=== PATIENT | male | born 1990 | race African-American/Black ===

== ENCOUNTER 2019-01-28 18:47 | Emergency (ER) | payer OTHER, SELFPAY ==
--- NOTE | 2019-01-28 19:33 | ER ---
Nurse's Notes [facility] Name: Jasbir Alberto Age: 28 yrs Sex: Male : 1990 Arrival Date: 01/28/2019 Time: 18:51 Bed 19 Private MD: None, None Diagnosis: Presentation: 01/28 19:04 Presenting complaint: Patient states: I went to [place] about 30 minutes ago. They did an ed1 EKG and said I wasn't having a heart attack and that it would be over $400 to be seen by a doctor so I came here. I have been having chest pain on and off since Monday and heart problems run in my family so I wanted to get checked out. Transition of care: patient was not received from another setting of care. Onset of symptoms was January 26, 2019. Risk Assessment: Do you want to hurt yourself or someone else? Patient reports no desire to harm self or others. Initial Sepsis Screen: Does the patient meet any 2 criteria? No. Patient's initial sepsis screen is negative. Does the patient have a suspected source of infection? No. Patient's initial sepsis screen is negative. Care prior to arrival: EKG done at [place]. 19:04 Method Of Arrival: Ambulatory ed1 19:04 Acuity: SAFIA 3 ed1 Triage Assessment: 19:08 General: Appears in no apparent distress. Behavior is calm, cooperative, Pt eating and ed1 drinking during triage. Pain: Complains of pain in chest Pain does not radiate. Pain currently is 2 out of 10 on a pain scale. at worst was 8 out of 10 on a pain scale. Quality of pain is described as sharp, Pain began 2-3 days ago. Is episodic, lasting a few minutes. EENT: No signs and/or symptoms were reported regarding the EENT system. Neuro: Level of Consciousness is awake, alert, obeys commands, Oriented to person, place, time, situation. Cardiovascular: Reports chest pain, Denies diaphoresis, fatigue, lightheadedness, nausea, palpitations, shortness of breath, syncope, vomiting, Heart tones S1 S2 present Capillary refill < 3 seconds in bilateral fingers Rhythm is regular Chest pain is described as mild, quality is sharp, is located in substernal area began Monday episodes are intermittent last 2-3 minutes. Respiratory: Airway is patent Respiratory effort is even, unlabored, Respiratory pattern is regular, symmetrical, Breath sounds are clear bilaterally. Denies cough, shortness of breath. GI: Abdomen is non-distended, Bowel sounds present X 4 quads. Abd is soft and non tender X 4 quads. Patient currently denies diarrhea, nausea, vomiting. : No signs and/or symptoms were reported regarding the genitourinary system. Derm: Skin is intact, is healthy with good turgor, Skin is dry, Skin is normal, Skin temperature is warm. Musculoskeletal: Circulation, motion, and sensation intact. Range of motion: intact in all extremities. Historical: - Allergies: 19:08 Peanut; ed1 19:08 Dairy; ed1 19:08 Chocolate; ed1 - Home Meds: 19:08 None [Active]; ed1 - PMHx: 19:08 None; ed1 - PSHx: 19:08 [place] teeth; ed1 - Immunization history:: Adult Immunizations up to date, Flu vaccine is not up to date. Patient has never been vaccinated. - Social history:: Smoking status: Patient uses tobacco products, smokes one-half pack cigarettes per day. - Ebola Screening: : Patient negative for fever greater than or equal to 101.5 degrees Fahrenheit, and additional compatible Ebola Virus Disease symptoms Patient denies exposure to infectious person Patient denies travel to an Ebola-affected area in the 21 days before illness onset No symptoms or risks identified at this time. Screenin:11 Abuse screen: Denies threats or abuse. Denies injuries from another. Nutritional ed1 screening: No deficits noted. Tuberculosis screening: No symptoms or risk factors identified. Fall Risk None identified. Assessment: 19:11 General: See triage assessment. Pain: Complains of pain in chest Pain does not radiate. ed1 Pain currently is 2 out of 10 on a pain scale. at worst was 8 out of 10 on a pain scale. Quality of pain is described as sharp, Pain began 2-3 days ago. 19:28 Reassessment: Pt ambulated to nurses station and stated "I live in [place] and my ride ed1 is here. If I don't leave now I won't have a ride home.". Vital Signs: 19:08 BP 140 / 93; Pulse 103; Resp 16; Temp 98.7(O); Pulse Ox 100% on R/A; Weight 89.36 kg ed1 (R); Height 5 ft. 6 in. (167.64 cm) (R); Pain 2/10; 19:08 Body Mass Index 31.80 (89.36 kg, 167.64 cm) ed1 ED Course: 18:51 Patient arrived in ED. mr 18:51 None, None is Private Physician. mr 18:58 Emily Machado, RN is Primary Nurse. ed1 19:07 Triage completed. ed1 19:08 Arm band placed on. ed1 19:11 Awaiting ED provider evaluation. ed1 19:11 Patient has correct armband on for positive identification. Bed in low position. Call ed1 light in reach. Side rails up X 1. Pulse ox on. NIBP on. 19:11 Patient maintains SpO2 saturation greater than 95% on room air. ed1 19:19 Emile Tanner MD is Attending Physician. maria 19:30 No provider procedures requiring assistance completed. Patient did not have IV access ed1 during this emergency room visit. Administered Medications: No medications were administered Outcome: 19:30 Eloped from waiting room, before seeing physician Pt left due to not having ed1 transportation. 19:30 Condition: stable 19:30 Discharge instructions given to patient, Instructed on I informed the patient that if his condition worsened he needs to return to the ER for evaluation. Demonstrated understanding of instructions. 19:32 Patient left the ED. ed1 Signatures: Emile Tanner MD MD cha Rivera, Mary mr Emily Machado, RN RN ed1
== END 2019-01-28 19:32 | disposition left against medical advice (07) ==
LOC: ER 18:47
DX: R07.9 Chest pain, unspecified (principal); Z91.011 Allergy to milk products; Z91.010 Allergy to peanuts; Z91.018 Allergy to other foods; Z53.21 Procedure and treatment not carried out due to patient leaving prior to being seen by health care provider
CPT/HCPCS: 99284

== ENCOUNTER 2023-07-27 15:55 | Emergency (ER) | payer BC ==
[2023-07-27 16:32] LABS: Absolute Lymphocytes (CBC) 3.6 K/uL (0.7-4.9); Hematocrit 45.9 % (39.6-49.0); MCV 86.8 fL (80-100); Platelets 221 thou/uL (152-406); RBC Red Blood Cell Count 5.29 M/uL (4.33-5.43)
[2023-07-27 16:47] LABS: Albumin 3.9 g/dL (3.4-5.0); Bilirubin Total 0.3 mg/dL (0.2-1.0); Potassium 3.9 mEq/L (3.5-5.1); Protein, Total 7.3 g/dL (6.4-8.2)
--- NOTE | 2023-07-27 17:09 | EDPHYS ---
Physician Documentation [facility] Name: Jasbir Alberto Age: 32 yrs Sex: Male : 1990 Arrival Date: 07/27/2023 Time: 15:55 Bed 17 Private MD: ED Physician Keven Hu HPI: 07/27 16:26 This 32 yrs old Black Male presents to ER via Ambulatory with complaints of Arm Problem.ms3 16:26 32-year-old male with no past medical history presents for left arm twitching that ms3 began on awakening this morning. Patient states symptoms became worse after he awoke from a nap that started at 10:30 AM. Patient denies headache, nausea, vomiting, numbness, weakness. Patient denies pain. Historical: - Allergies: 16:03 Chocolate; ap3 16:03 Dairy; ap3 16:03 Peanut; ap3 - Home Meds: 16:03 None [Active]; ap3 - PMHx: 16:03 None; ap3 - Immunization history:: Adult Immunizations unknown. - Social history:: Smoking status: Patient reports the use of cigarette tobacco products, smokes one-half pack cigarettes per day. ROS: 17:09 Constitutional: Negative for fever, and chills. Neck: Negative for injury, pain, and ms3 swelling, Cardiovascular: Negative for chest pain, and palpitations. Respiratory: Negative for shortness of breath, cough, wheezing, and pleuritic chest pain, Abdomen/GI: Negative for abdominal pain, nausea, vomiting, diarrhea, and constipation, MS/Extremity: Negative for injury and deformity, Skin: Negative for injury, rash, and discoloration. 17:09 Neuro: Positive for Left arm twitching. 17:09 All other systems are negative. Exam: 17:09 Constitutional: This is a well developed, well nourished patient who is awake, alert, ms3 and in no acute distress. Head/Face: Normocephalic, atraumatic. Neck: Trachea midline, no cervical lymphadenopathy. Supple, full range of motion without nuchal rigidity, or vertebral point tenderness. No Meningismus. Chest/axilla: Normal chest wall appearance and motion. Nontender with no deformity. Cardiovascular: Regular rate and rhythm with a normal S1 and S2. No gallops, murmurs, or rubs. Normal PMI, no JVD. No pulse deficits. Respiratory: Lungs have equal breath sounds bilaterally, clear to auscultation and percussion. No rales, rhonchi or wheezes noted. No increased work of breathing, no retractions or nasal flaring. Abdomen/GI: Soft, non-tender, with normal bowel sounds. No distension or tympany. No guarding or rebound. No evidence of tenderness throughout. Skin: Warm, dry with normal turgor. Normal color with no rashes, no lesions, and no evidence of cellulitis. MS/ Extremity: Pulses equal, no cyanosis. Neurovascular intact. Full, normal range of motion. Neuro: Awake and alert, GCS 15, oriented to person, place, time, and situation. Cranial nerves II-XII grossly intact. Motor strength 5/5 in all extremities. Sensory grossly intact. Cerebellar exam normal. Normal gait. Vital Signs: 16:01 Pulse 93; Resp 17; Temp 97.7; Pulse Ox 100% ; ap3 16:01 BP 144 / 101; ap3 18:00 BP 142 / 99; Pulse 77; Resp 18; Pulse Ox 100% on R/A; nj1 NIH Stroke Scale Scores: 17:09 NIHSS Score: 0 ms3 MDM: 16:26 Patient medically screened. ms3 17:10 Differential diagnosis: Hypokalemia vs Hypocalcemia vs HTN. Data reviewed: vital signs, ms3 nurses notes, and as a result, I will discharge patient. Counseling: I had a detailed discussion with the patient and/or guardian regarding the historical points, exam findings, and any diagnostic results supporting the discharge/admit diagnosis, lab results, the need for outpatient follow up, to return to the emergency department if symptoms worsen or persist or if there are any questions or concerns that arise at home. Special discussion: I discussed with the patient/guardian in detail that at this point there is no indication for admission to the hospital. It is understood, however, that if the symptoms persist or worsen the patient needs to return immediately for re-evaluation. ED course: Discussed labs and physical exam findings with patient. Patient to follow-up with Dr. Burciaga in 2 to 3 days. Patient understands agrees plan. Her questions were answered. Return precautions discussed include worsening symptoms, or any other concerns. On reevaluation patient is alert and oriented x4, no apparent distress, nontoxic-appearing, ambulatory number department, speaking full sentences. 07/27 16:10 Order name: CBC with Diff; Complete Time: 16:49 ms3 07/27 16:10 Order name: CMP; Complete Time: 16:49 ms3 Administered Medications: No medications were administered Disposition Summary: 07/27/23 17:09 Discharge Ordered Location: Home ms3 Condition: Stable ms3 Diagnosis - Left arm twitch ms3 - Elevated blood-pressure reading, without diagnosis of hypertension ms3 Followup: ms3 - With: David Burciaga MD - When: 2 - 3 days - Reason: Recheck today's complaints Discharge Instructions: - Discharge Summary Sheet ll1 - Hypertension, Adult, [id number] ms3 - DASH Eating Plan ms3 Forms: - Work release form ll1 - Medication Reconciliation Form ms3 - Thank You Letter ms3 - Antibiotic Education ms3 - Prescription Opioid Use ms3 - Patient Portal Instructions ms3 - Leadership Thank You Letter ms3 NIH Stroke Scale - NIH Stroke Score Date: 07/27/2023 Time: 17:09 Total Score = 0 10. Dysarthria (speech clarity - read or repeat words) - 0(Normal) 11. Extinction and Inattention (visual/tactile/auditory/spatial/personal) - 0(No abnormality) 1a. Level of Consciousness (LOC) - 0(Alert) 1b. Level of Consciousness (LOC) (Month \T\ Age) - 0(Both) 1c. LOC Commands (Open \T\ Closes Eyes/Tire [employer]uster) - 0(Both) 2. Best Gaze (Lateral Gaze Paresis) - 0(Normal) 3. Visual Field Loss - 0(No visual loss) 4. Facial Palsy - 0(Normal) 5a. Left Arm: Motor (10-second hold) - 0(No drift) 5b. Right Arm: Motor (10-second hold) - 0(No drift) 6a. Left Leg: Motor (5-second hold - always test supine) - 0(No drift) 6b. Right Leg: Motor (5-second hold - always test supine) - 0(No drift) 7. Limb Ataxia (finger/nose \T\ heel/mckee - test with eyes open) - 0(Absent) 8. Sensory Loss (pinprick arms/legs/face) - 0(Normal) 9. Best Language: Aphasia (description/naming/reading) - 0(No aphasia) Initials: ms3 Signatures: Dispatcher [employer] Telma Gomez, RN RN ap3 Keven Hu DO DO ms3 Laine Hammer RN RN nj1
--- NOTE | 2023-07-27 17:09 | ER ---
Nurse's Notes [facility] Name: Jasbir Alberto Age: 32 yrs Sex: Male : 1990 Arrival Date: 07/27/2023 Time: 15:55 Bed 17 Private MD: Diagnosis: Left arm twitch;Elevated blood-pressure reading, without diagnosis of hypertension Presentation: 07/27 16:01 Chief complaint: Patient states: his left arm has been feeling like it was "jumpy" from ap3 his shoulder into his armpit. patient states this started when he woke up at approx 0900 this morning, but was not occurring when he went to bed last night. patient denies numbness and weakness. Coronavirus screen: At this time, the client does not indicate any symptoms associated with coronavirus-19. Ebola Screen: No symptoms or risks identified at this time. Initial Sepsis Screen: Does the patient meet any 2 criteria? No. Patient's initial sepsis screen is negative. Does the patient have a suspected source of infection? No. Patient's initial sepsis screen is negative. Risk Assessment: Do you want to hurt yourself or someone else? Patient reports no desire to harm self or others. Onset of symptoms is unknown. 16:01 Method Of Arrival: Ambulatory ap3 16:01 Acuity: SAFIA 3 ap3 Triage Assessment: 16:03 General: Appears in no apparent distress. Behavior is calm, cooperative, appropriate ap3 for age. Pain: Denies pain. Neuro: Reports jumpy feeling in his left arm. Cardiovascular: Denies chest pain, Patient's skin is warm and dry. Respiratory: Airway is patent Respiratory effort is even, unlabored, Respiratory pattern is regular, symmetrical. Musculoskeletal: Reports twitching in his left arm. Historical: - Allergies: 16:03 Chocolate; ap3 16:03 Dairy; ap3 16:03 Peanut; ap3 - Home Meds: 16:03 None [Active]; ap3 - PMHx: 16:03 None; ap3 - Immunization history:: Adult Immunizations unknown. - Social history:: Smoking status: Patient reports the use of cigarette tobacco products, smokes one-half pack cigarettes per day. Screenin:04 [facility] ED Fall Risk Assessment (Adult) History of falling in the last 3 months, ap3 including since admission No falls in past 3 months (0 pts). Abuse screen: Denies threats or abuse. Nutritional screening: No deficits noted. Tuberculosis screening: No symptoms or risk factors identified. Assessment: 16:31 Reassessment: No changes from previously documented assessment. eating a sandwich and ll1 juice. 16:54 Reassessment: No changes from previously documented assessment. Dr. Hu at . ll1 18:00 Reassessment: Patient appears in no apparent distress at this time. Patient and/or nj1 family updated on plan of care and expected duration. Pain level reassessed. Patient is alert, oriented x 3, equal unlabored respirations, skin warm/dry/pink. Patient states feeling better. Patient states symptoms have improved. Vital Signs: 16:01 Pulse 93; Resp 17; Temp 97.7; Pulse Ox 100% ; ap3 16:01 BP 144 / 101; ap3 18:00 BP 142 / 99; Pulse 77; Resp 18; Pulse Ox 100% on R/A; nj1 NIH Stroke Scale Scores: 17:09 NIHSS Score: 0 ms3 ED Course: 15:59 Patient arrived in ED. ts1 16:00 Keven Hu DO is Attending Physician. ms3 16:03 Triage completed. ap3 16:04 Arm band placed on left wrist. ap3 16:13 Laine Hammer, RN is Primary Nurse. nj1 16:21 Inserted saline lock: 22 gauge in right antecubital area, using aseptic technique. ll1 Blood collected. 16:30 Patient has correct armband on for positive identification. Bed in low position. Call nj1 light in reach. 16:30 Provided Education on: call light. nj1 17:08 David Burciaga MD is Referral Physician. ms3 18:00 No provider procedures requiring assistance completed. nj1 18:00 IV discontinued, intact, bleeding controlled. nj1 Administered Medications: No medications were administered Medication: 16:04 VIS not applicable for this client. ap3 Outcome: 17:09 Discharge ordered by . ms3 18:00 Discharged to home ambulatory. nj1 18:00 Condition: stable 18:00 Discharge instructions given to patient, Instructed on discharge instructions, follow up and referral plans. Demonstrated understanding of instructions, follow-up care. 18:16 Patient left the ED. nj1 NIH Stroke Scale - NIH Stroke Score Date: 07/27/2023 Time: 17:09 Total Score = 0 10. Dysarthria (speech clarity - read or repeat words) - 0(Normal) 11. Extinction and Inattention (visual/tactile/auditory/spatial/personal) - 0(No abnormality) 1a. Level of Consciousness (LOC) - 0(Alert) 1b. Level of Consciousness (LOC) (Month \\T\\ Age) - 0(Both) 1c. LOC Commands (Open \\T\\ Closes Eyes/Chief Marketing Officer) - 0(Both) 2. Best Gaze (Lateral Gaze Paresis) - 0(Normal) 3. Visual Field Loss - 0(No visual loss) 4. Facial Palsy - 0(Normal) 5a. Left Arm: Motor (10-second hold) - 0(No drift) 5b. Right Arm: Motor (10-second hold) - 0(No drift) 6a. Left Leg: Motor (5-second hold - always test supine) - 0(No drift) 6b. Right Leg: Motor (5-second hold - always test supine) - 0(No drift) 7. Limb Ataxia (finger/nose \\T\\ heel/mckee - test with eyes open) - 0(Absent) 8. Sensory Loss (pinprick arms/legs/face) - 0(Normal) 9. Best Language: Aphasia (description/naming/reading) - 0(No aphasia) Initials: ms3 Signatures: Telma Melara RN RN ap3 Esteban Weber RN RN ll1 Keven Hu DO DO ms3 Laine Hammer RN RN nj1 Noemy Curtis, LEATHA PAS ts1 Corrections: (The following items were deleted from the chart) 18:12 18:00 Reassessment: Patient appears in no apparent distress at this time. nj1 Patient and/or family updated on plan of care and expected duration. Pain level reassessed. Patient is alert, oriented x 3, equal unlabored respirations, skin warm/dry/pink. nj1
[2023-07-27 19:46] VITALS: TEMP 97.7; O2SAT 100
[2023-07-27 19:47] VITALS: BP 142/99
== END 2023-07-27 18:16 | disposition home or self-care (01) ==
LOC: ER 15:55
DX: R25.3 Fasciculation (principal); R03.0 Elevated blood-pressure reading, without diagnosis of hypertension; F17.210 Nicotine dependence, cigarettes, uncomplicated; Z91.010 Allergy to peanuts; Z91.011 Allergy to milk products; Z91.018 Allergy to other foods
CPT/HCPCS: 36415; 80053; 85025; 99283

== ENCOUNTER 2025-04-08 03:11 | Observation (INO) | payer BC ==
[2025-04-08] MEDS ORDERED: KETOROLAC 30 MG/ML INJ ONE ×2 (03:22→12:41)
[2025-04-08] MEDS ORDERED: ONDANSETRON 4 MG/2 ML VIAL ONE ×2 (03:22→09:55)
[2025-04-08] MEDS ORDERED: NA CHLORIDE 0.9% 1,000 ML ONE ×3 (03:23→09:57)
[2025-04-08] MEDS ORDERED: MORPHINE 4 MG/ML SYR ONE ×2 (03:23→07:04)
[2025-04-08 03:51] LABS: Absolute Basophils 0.1 K/uL (0-0.5); Absolute Eosinophils 0.1 K/uL (0-0.5); Absolute Lymphocytes (CBC) 2.3 K/uL (0.7-4.9); Absolute Monocytes 0.8 K/uL (0.1-1.3); Absolute Neutrophil 12.1 K/uL (1.8-8.0); Basophils % 0.4 % (0-1.3); Hemoglobin 14.9 g/dL (13.6-17.9); MCH 29.5 pg (27.0-35.0); MCHC 33.8 g/dL (32.0-36.0); MCV 87.2 fL (80-100); MPV 8.9 fL (7.6-11.3); Monocytes % 5.1 % (3.3-12.3); Neutrophils % 78.5 % (41.7-73.7); Platelets 256 thou/uL (152-406); RBC Red Blood Cell Count 5.04 M/uL (4.33-5.43); Red Cell Distribution Width 12.9 % (12.1-15.2)
[2025-04-08 04:00] LABS: Albumin/Globulin Ratio 1.2 (1.1-1.8); Anion Gap 7.6 mEq/L (5.0-15.0); Bilirubin Total 0.3 mg/dL (0.2-1.0); Globulin 3.4 g/dL (2.3-3.5); Potassium 3.6 mEq/L (3.5-5.1); Protein, Total 7.4 g/dL (6.4-8.2)
[2025-04-08] MEDS ORDERED: FAMOTIDINE 20 MG/2 ML VIAL IV ONE (06:07)
[2025-04-08] MEDS ORDERED: HALOPERIDOL LACT 5 MG/ML INJ ONE (06:07)
[2025-04-08] MEDS ORDERED: NA CHLORIDE 0.9% 50 ML ONE (06:07)
--- NOTE | 2025-04-08 06:18 | RAD REPORT ---
EXAM: CT Abdomen and Pelvis With Intravenous Contrast CLINICAL HISTORY: The patient is 34 years old and is Male; Abdominal pain. TECHNIQUE: Axial computed tomography images of the abdomen and pelvis with intravenous contrast. Sagittal and coronal reformatted images were created and reviewed. This CT exam was performed using one or more of the following dose reduction techniques: automated exposure control, adjustmen t of the mA and/or kV according to patient size, and/or use of iterative reconstruction technique. COMPARISON: No relevant prior studies available. FINDINGS: Lung bases: Unremarkable. No mass. No consolidation. ABDOMEN: Liver: Unremarkable. No mass. Gallbladder and bile ducts: Distended gallbladder without calcified stones visualized. Question g allbladder wall thickening. No ductal dilation. Pancreas: No findings to suggest acute pancreatitis. No mass visualized. No ductal dilation. Spleen: Unremarkable. No splenomegaly. Adrenals: Unremarkable. No mass. Kidneys and ureters: Unremarkable. No solid mass. No hydronephrosis. Stomach and bowel: No bowel dilatation or obstruction. No bowel wall thickening. PELVIS: Appendix: The visualized appendix is normal. No pericecal inflammation to suggest acute appendici tis. Bladder: Unremarkable. No mass. Reproductive: Unremarkable as visualized. ABDOMEN and PELVIS: Intraperitoneal space: Unremarkable. No free air. No significant fluid collection. Bones/joints: No acute fracture. No dislocation. Soft tissues: Unremarkable. Vasculature: Unremarkable. No abdominal aortic aneurysm. Lymph nodes: No pathologically enlarged lymph nodes. IMPRESSION: Distended gallbladder without calcified stones visualized. Question gallbladder wall thickening. Ul trasound follow-up recommended. Electronically signed by: Laura Chacko MD 04/08/2025 06:14 AM [employer] V2 Due to temporary technical issues with the PACS/Kidaro reporting system, reports are being anupama d by the in-house radiologist without review as a courtesy to ensure prompt reporting the interpreting radiologist is fully responsible for the content of the report. Transcribed Date/Time: 04/08/2025 6:18 AM
[2025-04-08] MEDS ORDERED: METOCLOPRAMIDE 10 MG/2mL INJ ONE (07:03)
[2025-04-08] MEDS ORDERED: droPERidol 5 MG/2 ML VIAL ONE (07:03)
[2025-04-08] MEDS ORDERED: MORPHINE 2 MG/ML SYR ONE (07:03)
[2025-04-08] MEDS ORDERED: PIPERACIL/TAZO 3.375 GM VIAL IV ONE (07:04)
[2025-04-08] MEDS ORDERED: NA CHLORIDE 0.9% 200 ML ONE (07:04)
--- NOTE | 2025-04-08 07:16 | EDPHYS ---
Physician Documentation [facility] Name: Jasbir Alberto Age: 34 yrs Sex: Male : 1990 Arrival Date: 04/08/2025 Time: 03:11 Bed 20 Private MD: ED Physician Salvador Ely HPI: 04/08 03:36 This 34 yrs old Black Male presents to ER via Unassigned with complaints of Abdominal sp4 Pain, Vomiting. 03:36 Acute onset right upper quadrant abdominal pain at 10 PM. sp4 06:31 Patient presents with moderate to severe right upper quadrant abdominal pain starting sp4 at 10 PM.. Historical: - Allergies: 03:39 Chocolate; vc1 03:39 Dairy; vc1 03:39 Peanut; vc1 - Home Meds: 03:39 None [Active]; vc1 - PMHx: 03:39 None; vc1 - PSHx: 03:39 None; vc1 - Immunization history:: Client reports having NOT received the Covid vaccine. - Infectious Disease History:: Denies. - Social history:: Smoking status: Patient reports the use of cigarette tobacco products, smokes one-half pack cigarettes per day. - Family history:: not pertinent. ROS: 06:31 Constitutional: Negative for fever, chills, and weight loss, positive right upper sp4 quadrant abdominal pain, positive vomiting 06:31 All other systems are negative, Exam: 06:31 Constitutional: This is a well developed, well nourished patient who is awake, alert, sp4 moderate distress secondary to pain Head/Face: Normocephalic, atraumatic. Eyes: Pupils equal round and reactive to light, extra-ocular motions intact. Lids and lashes normal. Conjunctiva and sclera are not injected. Cornea within normal limits. Periorbital areas with no swelling, redness, or edema. ENT: Nares patent. No nasal discharge, no septal abnormalities noted. Tympanic membranes are normal and external auditory canals are clear. Oropharynx with no redness, swelling, or masses, exudates, or evidence of obstruction, uvula midline. Mucous membranes moist. Neck: Trachea midline, no thyromegaly or masses palpated, and no cervical lymphadenopathy. Supple, full range of motion without nuchal rigidity, or vertebral point tenderness. Chest/axilla: Normal chest wall appearance and motion. Nontender with no deformity. No lesions are appreciated. Cardiovascular: Regular rate and rhythm with a normal S1 and S2. No gallops, murmurs, or rubs. Normal PMI, no JVD. No pulse deficits. Respiratory: Lungs have equal breath sounds bilaterally, clear to auscultation and percussion. No rales, rhonchi or wheezes noted. No increased work of breathing, no retractions or nasal flaring. Abdomen/GI: Soft, with normal bowel sounds. No distension or tympany. Moderate to severe right upper quadrant abdominal tenderness. Back: No spinal tenderness. No costovertebral tenderness. Skin: Warm, dry with normal turgor. Normal color with no rashes, no lesions, and no evidence of cellulitis. MS/ Extremity: Pulses equal, no cyanosis. Neurovascular intact. Full, normal range of motion. Neuro: Awake and alert, GCS 15, oriented to person, place, time, and situation. Cranial nerves II-XII grossly intact. Motor strength 5/5 in all extremities. Sensory grossly intact. Psych: Awake, alert, with orientation to person, place and time. Behavior, mood, and affect are within normal limits Vital Signs: 03:37 BP 177 / 138; Pulse 74; Resp 18; Temp 97.6; Pulse Ox 100% ; Weight 86.18 kg; Height 5 vc1 ft. 5 in. ; Pain 10/10; 06:22 BP 144 / 87; Pulse 63; Resp 24; Pulse Ox 100% ; vc1 07:53 BP 131 / 82; Pulse 74; Resp 17; Pulse Ox 100% ; ll1 10:32 BP 111 / 71; Pulse 87; Resp 18; Pulse Ox 100% ; Pain 4/10; ll1 03:37 Body Mass Index 31.62 (86.18 kg, 165.1 cm) vc1 03:37 Pain Scale: Adult vc1 10:32 Pain Scale: Adult ll1 [place] Coma Score: 06:31 Eye Response: spontaneous(4). Motor Response: obeys commands(6). Verbal Response: sp4 oriented(5). Total: 15. MDM: 03:23 Medical Screening Exam initiated sp4 06:31 Differential diagnosis: Nonspecific abd pain, gastritis, cholecystitis, pancreatitis, sp4 viral gastroenteritis, gastroenteritis. Data reviewed: vital signs, nurses notes, old medical records, lab test result(s), radiologic studies, CT scan. Consideration of Admission/Observation Escalation of care including admission/observation considered. ED course: CT - IMPRESSION: Distended gallbladder without calcified stones visualized. Question gallbladder wall thickening. Ultrasound follow-up recommended.. 04/08 03:23 Order name: CBC with Diff; Complete Time: 06:29 sp4 04/08 03:23 Order name: CMP; Complete Time: 06:29 sp4 04/08 03:23 Order name: Lipase; Complete Time: 06:29 sp4 04/08 07:37 Order name: CBC with Automated Diff EDMS 04/08 07:37 Order name: CBC with Automated Diff EDMS 04/08 07:37 Order name: CBC with Automated Diff EDMS 04/08 07:37 Order name: Comprehensive Metabolic Panel EDMS 04/08 07:37 Order name: Comprehensive Metabolic Panel EDMS 04/08 07:37 Order name: Comprehensive Metabolic Panel EDMS 04/08 03:23 Order name: CT Abd/Pelvis - IV Contrast Only sp4 04/08 06:28 Order name: US Abdomen Limited sp4 04/08 03:23 Order name: IV Saline Lock; Complete Time: 03:36 sp4 04/08 03:23 Order name: Labs collected and sent; Complete Time: 03:36 sp4 04/08 06:29 Order name: NPO; Complete Time: 07:00 sp4 Administered Medications: 03:49 Drug: Ketorolac IVP 30 mg IVP once Route: IVP; Site: left antecubital; vc1 07:27 Follow up: Response: No adverse reaction; Pain is decreased ll1 03:49 Drug: NS 0.9% IV 1000 ml IV at 1 bolus Per protocol; to be given as a bolus over 60 vc1 minutes Route: IV; Rate: 1 bolus; Site: left antecubital; 07:27 Follow up: Response: No adverse reaction; IV Status: Completed infusion; IV Intake: ll1 1000ml 03:50 Drug: morphine IVP or IV 8 mg IVP once over 4 mins Route: IVP; Infused Over: 4 mins; vc1 Site: left antecubital; 07:26 Follow up: Response: No adverse reaction; Pain is decreased ll1 03:50 Drug: Ondansetron IVP 8 mg IVP once; over 2 minutes Route: IVP; Site: left antecubital; vc1 07:26 Follow up: Response: No adverse reaction; Nausea is decreased ll1 06:22 Drug: Haloperidol IVP 2.5 mg/50 mL 2.5 mg IVP once; Place patient on a diagnostic cardiac sonographer vc1 Route: IVP; Site: left antecubital; 07:27 Follow up: Response: No adverse reaction ll1 06:22 Drug: Famotidine IVP 20 mg IVP once; dilute with 10 mL 0.9% NaCl; give over 2 minutes vc1 Route: IVP; Site: left antecubital; 07:27 Follow up: Response: No adverse reaction 1 07:26 Drug: morphine IVP or IV 6 mg IVP once over 4 mins Route: IVP; Infused Over: 4 mins; 1 Site: left antecubital; 07:27 Follow up: Response: No adverse reaction; Pain is unchanged, physician notified ll1 08:08 Follow up: Response: No adverse reaction; Pain is decreased; RASS: Alert and Calm (0) 1 07:26 Drug: metoCLOPramide IVP 10 mg IVP once; over 1 to 2 minutes Route: IVP; Site: left ll1 antecubital; 08:08 Follow up: Response: No adverse reaction; Nausea is decreased 1 07:26 Drug: NS 0.9% IV 1000 ml IV at 1000 ml once; to be given as a bolus over 60 minutes ll1 Route: IV; Rate: 1000 ml; Site: left antecubital; 10:33 Follow up: Response: No adverse reaction; IV Status: Completed infusion; IV Intake: ll1 1000ml 07:28 Drug: Droperidol IVP 2.5 mg IVP once Route: IVP; Site: left antecubital; 1 08:08 Follow up: Response: No adverse reaction; Pain is decreased; RASS: Alert and Calm (0) 1 07:28 Drug: Piperacillin-Tazobactam IVPB 3.375 grams IVPB once over 60 mins; (mix in NS 100 ll1 mL) Route: IVPB; Infused Over: 60 mins; Site: left antecubital; 08:08 Follow up: Response: No adverse reaction; IV Status: Completed infusion; IV Intake: ll1 100ml 09:25 Drug: Ativan IVP 1 mg IVP once Route: IVP; Site: left antecubital; ll1 10:33 Follow up: Response: No adverse reaction; Anxiety decreased; RASS: Alert and Calm (0) ll1 Disposition Summary: 04/08/25 07:15 Hospitalization Ordered Notes: Hospitalization Status: Observation sp4 Provider: Srinath Marcum sp4 Condition: Stable sp4 Problem: new sp4 Symptoms: have improved sp4 Bed/Room Type: Standard sp4 Location: [facility] ER HOLD(04/08/25 08:25) kb3 Room Assignment: ERHOLD-(04/08/25 08:25) kb3 Diagnosis - Acute cholecystitis sp4 Forms: - Medication Reconciliation Form sp4 - SBAR form sp4 - Leadership Thank You Letter sp4 Signatures: Dispatcher [employer] EDEsteban Ravi RN RN ll1 Rosa Johnson RN RN vc1 Shruti Dey RN RN kb3 Salvador Ely MD MD sp4 Corrections: (The following items were deleted from the chart) 08: 07:15 Telemetry/MedSurg (observation) sp4 kb3 08:25 07:15 sp4 kb3
--- NOTE | 2025-04-08 07:16 | ER ---
Nurse's Notes [facility] Name: Jasbir Alberto Age: 34 yrs Sex: Male : 1990 Arrival Date: 04/08/2025 Time: 03:11 Bed 20 Private MD: Diagnosis: Acute cholecystitis Presentation: 04/08 03:37 Chief complaint: Patient states: severe right upper quadrant pain with vomiting. vc1 Coronavirus screen: Client denies travel out of the [place] in the last 14 days. At this time, the client does not indicate any symptoms associated with coronavirus-19. Ebola Screen: Patient negative for fever greater than or equal to 101.5 degrees Fahrenheit, and additional compatible Ebola Virus Disease symptoms Patient denies exposure to infectious person. Patient denies travel to an Ebola-affected area in the 21 days before illness onset. No symptoms or risks identified at this time. Initial Sepsis Screen: Does the patient meet any 2 criteria? No. Patient's initial sepsis screen is negative. Does the patient have a suspected source of infection? No. Patient's initial sepsis screen is negative. Risk Assessment: Do you want to hurt yourself or someone else? Patient reports no desire to harm self or others. Onset of symptoms was April 08, 2025 at 02:30. Care prior to arrival: None. Activity prior to arrival: vomiting. 03:37 Method Of Arrival: Ambulatory vc1 03:37 Acuity: SAFIA 3 vc1 Historical: - Allergies: 03:39 Chocolate; vc1 03:39 Dairy; vc1 03:39 Peanut; vc1 - Home Meds: 03:39 None [Active]; vc1 - PMHx: 03:39 None; vc1 - PSHx: 03:39 None; vc1 - Immunization history:: Client reports having NOT received the Covid vaccine. - Infectious Disease History:: Denies. - Social history:: Smoking status: Patient reports the use of cigarette tobacco products, smokes one-half pack cigarettes per day. - Family history:: not pertinent. Screenin:40 [facility] ED Fall Risk Assessment (Adult) History of falling in the last 3 months, vc1 including since admission No falls in past 3 months (0 pts) Confusion or Disorientation No (0 pts) Intoxicated or Sedated No (0 pts) Impaired Gait No (0 pts) Mobility Assist Device Used No (0 pt) Altered Elimination No (0 pt) Score/Fall Risk Level 0 - 2 = Low Risk Oriented to surroundings, Maintained a safe environment, Educated pt \T\ family on fall prevention, incl call for assistance when getting out of bed, Hourly rounding (assess needs \T\ fall precautionary measures) done. Abuse screen: Denies threats or abuse. Nutritional screening: No deficits noted. Tuberculosis screening: No symptoms or risk factors identified. Assessment: 06:22 Reassessment: Patient appears in no apparent distress at this time. Patient and/or vc1 family updated on plan of care and expected duration. Pain level reassessed. Patient is alert, oriented x 3, equal unlabored respirations, skin warm/dry/pink. Patient states symptoms have improved. 07:53 General: Appears in no apparent distress. Behavior is calm, cooperative, appropriate ll1 for age. Pain: Complains of pain in abdomen Pain currently is 7 out of 10 on a pain scale. Quality of pain is described as aching, crampy. GI: Bowel sounds present X 4 quads. Abd is soft and non tender X 4 quads. Reports lower abdominal pain, upper abdominal pain. 10:33 Reassessment: No changes from previously documented assessment. Patient and/or family ll1 updated on plan of care and expected duration. Pain level reassessed. Patient is alert, oriented x 3, equal unlabored respirations, skin warm/dry/pink. Vital Signs: 03:37 BP 177 / 138; Pulse 74; Resp 18; Temp 97.6; Pulse Ox 100% ; Weight 86.18 kg; Height 5 vc1 ft. 5 in. ; Pain 10/10; 06:22 BP 144 / 87; Pulse 63; Resp 24; Pulse Ox 100% ; vc1 07:53 BP 131 / 82; Pulse 74; Resp 17; Pulse Ox 100% ; ll1 10:32 BP 111 / 71; Pulse 87; Resp 18; Pulse Ox 100% ; Pain 4/10; ll1 03:37 Body Mass Index 31.62 (86.18 kg, 165.1 cm) vc1 03:37 Pain Scale: Adult vc1 10:32 Pain Scale: Adult ll1 [place]i Coma Score: 06:31 Eye Response: spontaneous(4). Motor Response: obeys commands(6). Verbal Response: sp4 oriented(5). Total: 15. ED Course: 03:12 Patient arrived in ED. mr 03:21 Salvador Ely MD is Attending Physician. sp4 03:27 Inserted saline lock: 20 gauge in left antecubital area, using aseptic technique. Blood rk3 collected. Flushed with 10 mL NS. 03:28 Initial lab(s) drawn, by me, sent to lab. rk3 03:39 Triage completed. vc1 03:40 Arm band placed on left wrist. vc1 04:23 CT Abd/Pelvis - IV Contrast Only In Process Unspecified. EDMS 06:22 Rosa Johnson, RN is Primary Nurse. vc1 07:15 Srinath Marcum is Hospitalizing Provider. sp4 07:42 US Abdomen Limited In Process Unspecified. EDMS 09:01 No provider procedures requiring assistance completed. Patient admitted, IV remains in ll1 place. 09:01 Patient has correct armband on for positive identification. Bed in low position. ll1 Provided Education on: ER procedures and process. Administered Medications: 03:49 Drug: Ketorolac IVP 30 mg IVP once Route: IVP; Site: left antecubital; vc1 07:27 Follow up: Response: No adverse reaction; Pain is decreased ll1 03:49 Drug: NS 0.9% IV 1000 ml IV at 1 bolus Per protocol; to be given as a bolus over 60 vc1 minutes Route: IV; Rate: 1 bolus; Site: left antecubital; 07:27 Follow up: Response: No adverse reaction; IV Status: Completed infusion; IV Intake: ll1 1000ml 03:50 Drug: morphine IVP or IV 8 mg IVP once over 4 mins Route: IVP; Infused Over: 4 mins; vc1 Site: left antecubital; 07:26 Follow up: Response: No adverse reaction; Pain is decreased ll1 03:50 Drug: Ondansetron IVP 8 mg IVP once; over 2 minutes Route: IVP; Site: left antecubital; vc1 07:26 Follow up: Response: No adverse reaction; Nausea is decreased ll1 06:22 Drug: Haloperidol IVP 2.5 mg/50 mL 2.5 mg IVP once; Place patient on a shelter monitor vc1 Route: IVP; Site: left antecubital; 07:27 Follow up: Response: No adverse reaction 1 06:22 Drug: Famotidine IVP 20 mg IVP once; dilute with 10 mL 0.9% NaCl; give over 2 minutes vc1 Route: IVP; Site: left antecubital; 07:27 Follow up: Response: No adverse reaction 1 07:26 Drug: morphine IVP or IV 6 mg IVP once over 4 mins Route: IVP; Infused Over: 4 mins; 1 Site: left antecubital; 07:27 Follow up: Response: No adverse reaction; Pain is unchanged, physician notified 1 08:08 Follow up: Response: No adverse reaction; Pain is decreased; RASS: Alert and Calm (0) [facility] 07:26 Drug: metoCLOPramide IVP 10 mg IVP once; over 1 to 2 minutes Route: IVP; Site: left ll1 antecubital; 08:08 Follow up: Response: No adverse reaction; Nausea is decreased [facility] 07:26 Drug: NS 0.9% IV 1000 ml IV at 1000 ml once; to be given as a bolus over 60 minutes ll1 Route: IV; Rate: 1000 ml; Site: left antecubital; 10:33 Follow up: Response: No adverse reaction; IV Status: Completed infusion; IV Intake: ll1 1000ml 07:28 Drug: Droperidol IVP 2.5 mg IVP once Route: IVP; Site: left antecubital; 1 08:08 Follow up: Response: No adverse reaction; Pain is decreased; RASS: Alert and Calm (0) [facility] 07:28 Drug: Piperacillin-Tazobactam IVPB 3.375 grams IVPB once over 60 mins; (mix in NS 100 ll1 mL) Route: IVPB; Infused Over: 60 mins; Site: left antecubital; 08:08 Follow up: Response: No adverse reaction; IV Status: Completed infusion; IV Intake: ll1 100ml 09:25 Drug: Ativan IVP 1 mg IVP once Route: IVP; Site: left antecubital; 1 10:33 Follow up: Response: No adverse reaction; Anxiety decreased; RASS: Alert and Calm (0) [facility] Medication: 07:54 VIS not applicable for this client. 1 Intake: 07:27 IV: 1000ml; Total: 1000ml. ll1 08:08 IV: 100ml; Total: 1100ml. ll1 10:33 IV: 1000ml; Total: 2100ml. ll1 Outcome: 07:15 Decision to Hospitalize by Provider. sp4 09:01 Admitted to ER Hold. Please see [facility] for further documentation. ll1 09:01 Condition: stable 09:01 Instructed on the need for admit, 10:33 Patient left the ED. ll1 Signatures: Dispatcher [employer] EDMS Elizabeth Gu, Reg Reg mr Esteban Weber RN RN ll1 Rosa Johnson RN RN vc1 Salvador Ely MD MD sp4 Loc [place] rk3 Corrections: (The following items were deleted from the chart) 03:35 03:34 Inserted saline lock: 20 gauge in left antecubital area, using aseptic technique. rk3 Blood collected. Flushed with 10 mL NS rk3 03:35 03:34 Initial lab(s) drawn, by ms, sent to lab. rk3 rk3
[2025-04-08] MEDS ORDERED: MORPHINE 2 MG/ML SYR IV PRN (07:33)
--- NOTE | 2025-04-08 07:40 | P.HP ---
Certification for Inpatient Patient admitted to: Observation With expected LOS: <2 Midnights Patient will require the following post-hospital care: None Practitioner: I am a practitioner with admitting privileges, knowledge of patient current condition, hospital course, and medical plan of care. Services: Services provided to patient in accordance with Admission requirements found in Title 42 Section 412.3 of the Code of Federal Regulations Patient History Date of Service: 04/08/25 Reason for admission: Acute cholecystitis History of Present Illness: 34-year-old otherwise healthy patient presents to the emergency department chief complaint of right upper quadrant abdominal pain. He reports the pain started a few hours after eating steak last night. He had similar pain about 2 months ago but it did not last as long and was not as severe. Patient was evaluated in the emergency department his labs were significant for leukocytosis with a white blood cell count of 15.4 LFTs within normal limits CT of the abdomen pelvis with IV contrast was performed which demonstrated distended gallbladder without calcified stones visualized. Question gallbladder wall thickening. Ultrasound follow-up recommended. Follow-up ultrasound has been ordered, patient does have significant right upper quadrant tenderness and pain. ED discussed case with general surgery who evaluate patient for possible laparoscopic cholecystectomy. He was given IV antibiotics and pain medications in the ED. - Past Medical/Surgical History -: None -: Tonsils and adenoids Psychosocial/ Personal History: Lives home with family - Family History Mother -: Heart disease, Diabetes - Social History Smoking Status: Current every day smoker Counseled patient to stop smoking for: less than [address]: Home Review of Systems 10-point ROS is otherwise unremarkable Gastrointestinal: Abdominal Pain Physical Examination - Physical Exam General: Alert, In no apparent distress, Oriented x3 HEENT: Atraumatic, PERRLA, EOMI Neck: Supple, 2+ carotid pulse no bruit, No LAD, Without JVD or thyroid abnormality Respiratory: Clear to auscultation bilaterally, Normal air movement Cardiovascular: Regular rate/rhythm, Normal S1 S2 Gastrointestinal: Normal bowel sounds, Tenderness (moderate RUQ tenderness with guarding) Musculoskeletal: No tenderness Integumentary: No rashes Neurological: Normal speech, Normal strength at 5/5 x4 extr, Normal affect - Studies Laboratory Data (last 24 hrs) 04/08/25 04/08/25 03:28 03:28 WBC 15.40 H Hgb 14.9 Hct 44.0 Plt Count 256 Sodium 139 Potassium 3.6 BUN 11 Creatinine 1.26 Glucose 167 H Total Bilirubin 0.3 AST 21 ALT 25 Alkaline Phosphatase 68 Lipase 45 Assessment and Plan - Plan Assessment: Right upper quadrant abdominal pain suspected acute cholecystitis Plan: Right upper quadrant abdominal pain suspected acute cholecystitis N.p.o., IVF, IV antibiotics General Surgery consultation As needed pain medications and antiemetics DVT PPX: SCD Code status: Full Discharge Plan: Home Plan to discharge in: 24 Hours - Advance Directives Does patient have a Living Will: No Does patient have a Durable POA for Healthcare: No - Code Status/Comfort Care Code Status Assessed: Yes (Code) Critical Care: No Time Spent Managing Pts Care (In Minutes): 61
--- NOTE | 2025-04-08 07:47 | RAD REPORT ---
EXAM: Abdominal exam Limited ultrasound CLINICAL HISTORY: Abdominal pain COMPARISON: April 08, 2025 CT FINDINGS: Large gallstone impacted gallbladder neck. Small amount of gallbladder sludge. Mild thickening of the gallbladder wall. Biliary tree normal caliber IMPRESSION: Cholelithiasis Mild gallbladder wall thickening probably cholecystitis
[2025-04-08] MEDS: NA CHLORIDE 0.9% 1,000 ML IV SCH (08:00)
[2025-04-08] MEDS ORDERED: LORazepam 2 MG/ML VIAL ONE (08:12)
[2025-04-08 09:08] VITALS: BMI 31.4
[2025-04-08] MEDS ORDERED: propofoL 200 MG/20 ML VIAL IV ONE (09:55)
[2025-04-08] MEDS ORDERED: FENTANYL CITR 100 MCG/2 ML ONE (09:55)
[2025-04-08] MEDS ORDERED: ROCURONIUM 50 MG/5 ML VIAL IV ONE (09:56)
[2025-04-08] MEDS ORDERED: LIDOCAINE 2% MPF 5 ML VIAL ONE (09:56)
[2025-04-08] MEDS ORDERED: MIDAZOLAM HCL 2 MG/2 ML INJ ONE (09:56)
[2025-04-08] MEDS ORDERED: GLYCOPYRROLATE 0.2 MG/ML SYR ONE (11:59)
[2025-04-08] MEDS ORDERED: dexAMETHasone 10 MG/ML VIAL ONE (11:59)
--- NOTE | 2025-04-08 12:07 | CON ---
Date of Consultation: 04/08/2025 Reason For Service: Acute cholecystitis and symptomatic cholelithiasis. History Of Present Illness: This is a case of a 34-year-old patient who came with abdominal pain sin ce last night after he ate some steak. He did not improve overnight, so he came this morning to the ER complaining of acute abdominal pain. He still has severe pain with Greenfield sign positive. The pat ient had a workup, found to have acute cholecystitis, symptomatic cholelithiasis, and the surgical co nsult was called. He denies any dysuria, hematuria, hematochezia, or melena. He denies any recent t ravel out of the country. He denies any family member sick at home. Denies any jaundice, any trauma . Review of Systems: Ten points otherwise unremarkable. Past Medical History: Tonsillectomy. Family History: Include heart disease and diabetes. Social History: He smokes everyday. He was advised the importance of smoking cessation. He does no t drink alcohol. Allergies: REVIEWED. Physical Examination: Vital Signs: Reviewed. General: Patient is awake and alert. HEENT: Pupils are equal and reactive. Anicteric. Neck: Supple. Chest: Clear. Heart: S1, S2. Abdomen: Soft and depressible. Epigastric right upper quadrant pain with Greenfield sign positive. Rectal: Deferred. Extremities: Good capillary refill. Laboratory Data: Blood work shows WBC count of 15.4 with hemoglobin of 14.9, platelets of 256, potas sium 3.6, total bilirubin of 0.3. CAT scan of the abdomen and pelvis and ultrasound interpreted by Joao Hernandez as large gallstone impacted in the gallbladder neck. Small amount of gallbladder sludge p resent. Thickening of the gallbladder. Cholelithiasis with cholecystitis present. Assessment: This is a 34-year-old patient with acute cholecystitis, symptomatic cholelithiasis. The benefits, alternatives, and risks of laparoscopic possible open cholecystectomy fully explained, whi ch include, but not limited to, infection, bleeding, damage to adjacent structures, anesthesia compli cation, choledocholithiasis, bile leak, pancreatitis, PR, and even . He also understands this m ay not relieve any symptoms. He might need more than one surgical intervention. He understood and h e is going to sign a consent. Patient was booked immediately in the OR. HM/ANDREA Voice ID: [id number] Report ID: [id number]
[2025-04-08] MEDS ORDERED: Mastisol Adhesive Liq ONE (12:41)
--- NOTE | 2025-04-08 12:56 | P.BOP ---
Preoperative diagnosis: acute cholecystitis, symptomatic cholelithiasis Postoperative diagnosis: same Primary procedure: Laparoscopic cholecystectomy [employer] Blanket Weaver: Valarie Gabriel (Antonio) Specimen: gb Findings: inflammed distended gallbladder Anesthesia: General Complications: None Transferred to: Recovery Room Condition: Good
[2025-04-08 13:57] VITALS: O2SAT 98
[2025-04-08] MEDS: PIPER TAZO 3.375 GM in NA CHLORIDE 0.9% 100 ML IV SCH (15:43)
--- NOTE | 2025-04-08 17:12 | OP ---
Date of Procedure: 04/08/2025 Surgeon: Edgar Mahajan MD Swatch Folder: DONOVAN Hastings. Preoperative Diagnosis: Acute cholecystitis, symptomatic cholelithiasis. Postoperative Diagnosis: Acute cholecystitis, symptomatic cholelithiasis. Procedure: Laparoscopic cholecystectomy. Specimen: Gallbladder. Findings: Inflamed distended gallbladder. Anesthesia: General plus local. Complications: None. Indications: This is a case of a 34-year-old patient who came to us with acute abdominal pain, Brody y sign positive, peritonitis, found to have acute cholecystitis, symptomatic cholelithiasis. The christy efits, alternatives, and risks of laparoscopic, possible open cholecystectomy fully explained, which include, but not limited to, infection, bleeding, damage to adjacent structures, anesthesia complicat ion, choledocholithiasis, bile leak, pancreatitis, AL, and even . He also understands this may not relieve any symptoms, he might need more than one surgical intervention. He understood, signed a consent. Description Of Procedure: The patient was brought to the operating room, placed in supine position. Anesthesia was induced without complication. Abdominal area was prepped and draped in the usual vickie rile fashion. Marcaine 0.5% was injected for local anesthetic, followed by sharp incision of the ski n in the infraumbilical region. Incision was carried down to fascia, which was opened under direct v ision. Peritoneum was encountered, opened under direct vision. Vicryl #1 placed inside the fascia. Yanick trocar was carefully introduced. Pneumoperitoneum was obtained. I placed 3 more trocars, 5 mm each one of them, 1 in the epigastric area, 2 in the right upper quadrant using the same technique , which consisted of local anesthetic, sharp incision of the skin, introduction of the trocars under direct vision. This allowed me to put a grasper partially. I could not hold it. It is too distende d, so I put an Endo needle under direct visualization in the abdomen and basically deflated the gallb ladder partially, removed the needle under direct visualization. Now, we were able to put a grasper. Adhesions of omentum were carefully removed from the gallbladder. Then another grasper placed in t he infundibulum and the gallbladder was retracted in the inferolateral fashion exposing the triangle of Calot, obtaining critical view. Cystic duct and cystic artery were clearly isolated, freed circum ferentially, and a connection between those and the gallbladder was clearly identified. I proceeded to ligate those by using at least 3 clips proximal, 1 clip distal, ligation in the middle. Same was done with the cystic artery. A small little branch of the cystic artery was also ligated using the s tonya technique. Hepatic arteries and common bile duct were protected at all times. The gallbladder w as removed from the liver using Bovie cauterizer and removed from abdominal cavity using EndoCatch th rough the umbilical incision. The umbilical incision had to be opened a little bit more since the st one is so large that it did not fit through the initial opening. This required an extra Vicryl at th e end of the case. We obtained pneumoperitoneum again, checked the area of the gallbladder surgery. It looks intact. No bile leak. No bleeding. At that moment, I proceeded to remove the trocars und er direct vision. Deflated the pneumoperitoneum. Closed the fascia with #1 Vicryl, irrigated subcut aneous tissue, closed that with 3-0 chromic and the skin with 3-0 chromic and Steri-Strips on top. S ponge counts and instrument counts were correct. Patient tolerated the procedure well. Patient sent to recovery in stable condition. ROLAND/ANDREA Voice ID: [id number] Report ID: [id number]
[2025-04-09] MEDS: HYDROCODONE/APAP 7.5/325 MG TAB PO PRN (06:13)
[2025-04-09] MEDS: ONDANSETRON 4 MG/2 ML VIAL IV PRN (06:14)
[2025-04-09 06:29] LABS: Absolute Basophils 0.1 K/uL (0-0.5); Absolute Monocytes 1.2 K/uL (0.1-1.3); Absolute Neutrophil 14.7 K/uL (1.8-8.0); Basophils % 0.4 % (0-1.3); Eosinophils % 0.1 % (0-4.4); Hematocrit 44.8 % (39.6-49.0); Hemoglobin 15.3 g/dL (13.6-17.9); Lymphocytes % 11.2 % (15.3-44.8); MCHC 34.1 g/dL (32.0-36.0); MCV 87.9 fL (80-100); MPV 8.7 fL (7.6-11.3); Monocytes % 6.7 % (3.3-12.3); Neutrophils % 81.6 % (41.7-73.7); Nucleated Red Blood Cells % 0.1 % (0-0); Platelets 273 thou/uL (152-406); Red Cell Distribution Width 13.1 % (12.1-15.2)
[2025-04-09 06:45] LABS: Albumin 3.9 g/dL (3.4-5.0); Anion Gap 8.1 mEq/L (5.0-15.0); Bilirubin Total 0.8 mg/dL (0.2-1.0); Globulin 3.9 g/dL (2.3-3.5); Potassium 4.1 mEq/L (3.5-5.1); Protein, Total 7.8 g/dL (6.4-8.2)
[2025-04-09 12:31] VITALS: BP 126/80; TEMP 97.5
--- NOTE | 2025-04-09 14:23 | PN ---
Date of Progress Note: 04/09/2025 Diagnoses: Acute cholecystitis, symptomatic cholelithiasis, status post cholecystectomy. Subjective: Patient doing well, ambulating, tolerating diet. No nausea. No vomiting. No fever. T olerating diet. Objective: Chest: Clear. Abdomen: Soft and depressible. Intact surgical site. Extremities: Good capillary refill. Plan: From the surgical standpoint, he will be discharged to home on p.o. antibiotics and also pain medication. He will follow up in my office this Monday or monday for followup. I understand he is pending some blood work. ROLAND/ANDREA Voice ID: [id number] Report ID: [id number]
[2025-04-09 15:06] LABS: Hematocrit 40.5 % (39.6-49.0); MCH 30.3 pg (27.0-35.0); MCHC 34.7 g/dL (32.0-36.0); MCV 87.4 fL (80-100); MPV 9.1 fL (7.6-11.3); Platelets 227 thou/uL (152-406); RBC Red Blood Cell Count 4.63 M/uL (4.33-5.43); Red Cell Distribution Width 13.3 % (12.1-15.2)
--- NOTE | 2025-04-09 15:49 | P.DS ---
Admission Date: 04/08/25 Discharge Date: 04/09/25 Disposition: ROUTINE DISCHARGE Discharge Condition: GOOD Reason for Admission: Acute cholecystitis Brief History of Present Illness: 34-year-old otherwise healthy patient presents to the emergency department chief complaint of right upper quadrant abdominal pain. He reports the pain started a few hours after eating steak last night. He had similar pain about 2 months ago but it did not last as long and was not as severe. Patient was evaluated in the emergency department his labs were significant for leukocytosis with a white blood cell count of 15.4 LFTs within normal limits CT of the abdomen pelvis with IV contrast was performed which demonstrated distended gallbladder without calcified stones visualized. Question gallbladder wall thickening. Ultrasound follow-up recommended. Follow-up ultrasound has been ordered, patient does have significant right upper quadrant tenderness and pain. ED discussed case with general surgery who evaluate patient for possible laparoscopic cholecystectomy. He was given IV antibiotics and pain medications in the ED. Hospital Course: Assessment: Right upper quadrant abdominal pain suspected acute cholecystitis Patient was admitted to the hospital for acute cholecystitis. He underwent laparoscopic cholecystectomy on 04/08 and has been doing well postoperatively. He is stable for discharge outpatient follow-up with general surgery in 1 week. Prescription for antibiotics, pain medication sent to his pharmacy. Keep surgical area intact for 48h then may remove outer dressing and shower but keep sterile strips intact. Monitor for signs of fever, chills or redness/signs of infection around surgical site White blood cell count elevated but this is likely secondary to recent surgery, patient remains afebrile and clinically doing quite well He is stable for discharge and outpatient follow-up with general surgery in 1 week Vital Signs/Physical Exam: Temp Pulse Resp BP Pulse Ox 97.5 F 87 18 126/80 99 04/09/25 12:00 04/09/25 12:00 04/09/25 12:00 04/09/25 12:04/09/25 12:00 General: Alert, In no apparent distress, Oriented x3 HEENT: Atraumatic, PERRLA Neck: Supple, JVD not distended Respiratory: Clear to auscultation bilaterally, Normal air movement Cardiovascular: Regular rate/rhythm, Normal S1 S2 Gastrointestinal: Normal bowel sounds, No tenderness Musculoskeletal: No tenderness Integumentary: No rashes Neurological: Normal speech, Normal affect Laboratory Data at Discharge: WBC 17.10 thou/uL (4.3-10.9) H 04/09/25 14:51 Hgb 14.0 g/dL (13.6-17.9) D 04/09/25 14:51 Hct 40.5 % (39.6-49.0) 04/09/25 14:51 Plt Count 227 thou/uL (152-406) 04/09/25 14:51 Sodium 139 mEq/L (136-145) 04/09/25 06:21 Potassium 4.1 mEq/L (3.5-5.1) D 04/09/25 06:21 BUN 11 mg/dL (7-18) 04/09/25 06:21 Creatinine 1.38 mg/dL (0.70-1.30) H 04/09/25 06:21 Glucose 110 mg/dL (74-106) H 04/09/25 06:21 Total Bilirubin 0.8 mg/dL (0.2-1.0) 04/09/25 06:21 AST 90 U/L (15-37) H 04/09/25 06:21 ALT 92 U/L (16-61) H 04/09/25 06:21 Alkaline Phosphatase 68 U/L (45-117) 04/09/25 06:21 Lipase 45 U/L (13-75) 04/08/25 03:28 Home Medications: Amox/Clavulanate [Augmentin 875-125 Tab] 875 mg PO BID 7 Days #14 tab 04/09/25 New Medications: Amox/Clavulanate [Augmentin 875-125 Tab] 875 mg PO BID 7 Days #14 tab Physician Discharge Instructions: Keep surgical area intact for 48h then may remove outer dressing and shower but keep sterile strips intact. Monitor for signs of fever, chills or redness/signs of infection around surgical site White blood cell count elevated but this is likely secondary to recent surgery, patient remains afebrile and clinically doing quite well He is stable for discharge and outpatient follow-up with general surgery in 1 week Patient was admitted to the hospital for acute cholecystitis. He underwent laparoscopic cholecystectomy on 04/08 and has been doing well postoperatively. He is stable for discharge outpatient follow-up with general surgery in 1 week. Prescription for antibiotics, pain medication sent to his pharmacy. Diet: Tripp Activity: Ad pacheco Followup: Edgar Mahajan MD [ACTIVE - CAN ADMIT] - 1 Week NONE,NONE [Primary Care Provider] - Time spent managing pt's care (in minutes): 48
== END 2025-04-09 17:14 | disposition home or self-care (01) ==
LOC: ER 03:11 → ERHOLD 07:50 → 2ND 13:52
PROVIDERS: ADMIT Internal Medicine; ATTEND Internal Medicine
PROC: 0FT44ZZ Resection of Gallbladder, Percutaneous Endoscopic Approach (ICD-10-PCS; principal; 2025-04-08 11:00)
DX: K80.00 Calculus of gallbladder with acute cholecystitis without obstruction (principal); F17.210 Nicotine dependence, cigarettes, uncomplicated
CPT/HCPCS: 96365; 96361; 85025 ×2; 36415 ×2; 88304; 85027; 83690; 80053 ×2; 74177; 76705; 96375; 99285; 47562; Q9967; J2704; J1630; J2765; J2543 ×4; J2003; J2250; J3010; J1100; J2270; J2405 ×3; J1790; G0378 ×5; J7030 ×5